=== PATIENT | female | born 1985 | race Two or more races ===

== ENCOUNTER 2024-11-03 13:45 | Inpatient (IN) | payer OTHER ==
[~2024-11-03] VITALS: Ht 162.6 cm; Wt 83.0 kg
[2024-11-10 17:43] VITALS: BP 109/73
[2024-11-10] MEDS ORDERED: PRENATAL TABLE1 EAC1 PO (18:41)
[2024-11-10] MEDS ORDERED: RINGERS SOLUTION,LACTATED 1,000 ML IV SCH (19:45)
[2024-11-10 19:54] LABS: BASO % 0.2 % (0.1-1.2); EOS # 0.05 (0.04-0.54); EOS % 0.5 % (0.7-7.0); LYMPH # 2.11 (1.18-3.74); LYMPH % 22.0 % (19.3-53.1); MEAN PLATELET VOLUME 10.00 fl (9.4-12.4); MONO # 0.66 (0.24-0.82); MONO % 6.9 % (4.7-12.5); NEUT # 6.68 (1.56-6.13); NEUT % 69.7 % (34.0-71.1); RED CELL DISTRIBUTION WIDTH 14.2 % (11.6-14.4)
[2024-11-10] MEDS ORDERED: MORPHINE SULFATE 4 MG/ML CARTRIDGE IV PRN (20:00)
[2024-11-10 20:15] LABS: INR 0.94
[2024-11-10 20:24] LABS: ALT/SGPT 38.0 U/L (12-78); AST/SGOT 25.0 U/L (15-37); BILIRUBIN TOTAL 0.28 mg/dL (0.3-1.2); BUN CREA RATIO 32.0 (7.0-25.0); CREATININE SERUM 0.47 mg/dL (0.55-1.02); GFR 149.1; GLOBULINA 3.4 G/DL (2.4-3.5); GLUCOSE FASTING 91.0 mg/dL (65-100); OSMOLALITY SERUM 278.0 MOSM/KG (275-295)
[2024-11-10 23:50] VITALS: BP 93/59
[2024-11-11 03:20] VITALS: BP 91/55
[2024-11-11 07:26] VITALS: BP 113/75; O2SAT 100
[2024-11-11] MEDS ORDERED: OXYTOCIN 500 ML IV ONE (07:30)
[2024-11-11] MEDS ORDERED: CITRIC ACID/SODIUM CITRATE 30 ML BLIST.PACK PO NR (09:15)
[2024-11-11] MEDS ORDERED: OXYTOCIN 20 UNITS/1000ML RL PIGGYBAG IV ONE (10:55)
[2024-11-11] MEDS ORDERED: LIDOCAINE HCL 1% 10ML VIAL ONE (10:55)
[2024-11-11] MEDS ORDERED: CHLORHEXIDINE GLUCONATE 120 ML BOTTLE TOP ONE (10:55)
[2024-11-11] MEDS ORDERED: ERYTHROMYCIN BASE OPHT 1GM EACH TUBE OP ONE (10:55)
[2024-11-11] MEDS ORDERED: ONDANSETRON HCL 2 MG/ML VIAL ONE (11:07)
[2024-11-11 11:16] VITALS: BP 112/50; O2SAT 100
[2024-11-11] MEDS ORDERED: ONDANSETRON HCL 2 MG/ML VIAL IV ONE (12:00)
[2024-11-11 15:44] VITALS: BP 110/61
[2024-11-11] MEDS ORDERED: CHLORHEXIDINE GLUCONATE 120 ML BOTTLE TOP SCH (16:15)
[2024-11-11] MEDS ORDERED: OXYTOCIN 1,000 ML IV SCH (16:15)
[2024-11-11 19:06] VITALS: BP 125/64
[2024-11-12 00:51] VITALS: BP 100/67
[2024-11-12 07:14] LABS: BASO % 0.2 % (0.1-1.2); EOS # 0.05 (0.04-0.54); EOS % 0.3 % (0.7-7.0); LYMPH # 2.83 (1.18-3.74); LYMPH % 18.9 % (19.3-53.1); MEAN PLATELET VOLUME 10.40 fl (9.4-12.4); MONO # 0.97 (0.24-0.82); MONO % 6.5 % (4.7-12.5); NEUT # 10.98 (1.56-6.13); NEUT % 73.4 % (34.0-71.1); RED CELL DISTRIBUTION WIDTH 14.4 % (11.6-14.4)
[2024-11-12] MEDS ORDERED: SOD FERRIC GLUC COMPLX/SUCROSE 62.5 MG/5 ML AMPUL IV NR (08:00)
[2024-11-12 08:51] VITALS: BP 100/62; O2SAT 99
[2024-11-12 13:28] VITALS: BP 114/72; O2SAT 99
[2024-11-12 19:13] VITALS: BP 104/67
[2024-11-12 21:27] VITALS: BP 110/75
[2024-11-13 08:44] VITALS: BP 107/69; O2SAT 98
== END 2024-11-13 14:33 | disposition home or self-care (01) | DRG 807 ==
LOC: LDR 11-10 18:40 → OB/GYN 11-11 08:39
PROVIDERS: Obstetrics & Gynecology; Obstetrics & Gynecology Gynecology; ADMIT Obstetrics & Gynecology; ATTEND Obstetrics & Gynecology
PROC: 4A1HXCZ Monitoring of Products of Conception, Cardiac Rate, External Approach (ICD-10-PCS; 2024-11-10)
PROC: 10E0XZZ Delivery of Products of Conception, External Approach (ICD-10-PCS; principal; 2024-11-11)
PROC: 0HQ9XZZ Repair Perineum Skin, External Approach (ICD-10-PCS; 2024-11-11)
DX: O70.0 First degree perineal laceration during delivery (principal); Z37.0 Single live birth; Z3A.39 39 weeks gestation of pregnancy